=== PATIENT | male | born 1935 | race Caucasian/White ===

== ENCOUNTER 2016-09-06 20:01 | Emergency (ER) | payer OTHER, MEDICARE ==
[~2016-09-06] VITALS: Ht 193 cm; Wt 97.5 kg
--- NOTE | 2016-09-06 21:14 | RADIOLOGY REPORT ---
EXAMINATION: XR CHEST CLINICAL INFORMATION: Cough, shortness of breath. COMPARISON: Chest x-ray 08/13/2016. TECHNIQUE: PA and lateral views of the chest were obtained. FINDINGS: The lungs are well-expanded and clear without focal airspace consolidation. No pleural effusions or pneumothoraces are identified. Cardiomediastinal contours are within normal limits. Soft tissues are unremarkable. No acute osseous abnormality is identified. There is a healed fracture of the left lateral rib. IMPRESSION: No acute pulmonary abnormality.
--- NOTE | 2016-09-06 22:12 | ED GENERAL ADULT ---
History of Present Illness General Chief Complaint: Upper Respiratory Sx/Fever Stated Complaint: COUGH, CONGESTION, FEVER, CHILLS Source: patient Exam Limitations: no limitations Vital Signs & Intake/Output Vital Signs & Intake/Output Vital Signs Date Time Temp Pulse Resp B/P Pulse O2 O2 Flow FiO2 Ox Delivery Rate 09/07 0017 98.2 84 22 126/77 95 09/06 2312 94 09/06 2258 99.2 79 20 124/64 94 Room Air 09/06 2028 100.1 103 20 118/74 95 Room Air ED Intake and Output 09/07 0000 09/06 1200 Intake Total Output Total Balance Patient 215 lb Weight Allergies Coded Allergies: NO KNOWN ALLERGIES (09/24/11) Reconcile Medications Alendronate Sodium 70 MG TABLET 1 TAB PO QW BONES (Reported) in the morning, at least 30 minutes before the first food, beverage, or medication of the day Azithromycin (Zithromax) 250 MG TABLET 1 DP PO AD BRONCHITIS 2 the first day followed by 1 for days 2-5 Metoprolol Tartrate 25 MG TABLET 12.5 MG PO BID HTN (Reported) Prednisone 20 MG TABLET 1 TAB PO DAILY BRONCHITIS (Reported) Triage Note: PT TO ED C/O COUGH WITH YELLOW SPUTUM, CONGESTION, FEVER 102 AT HOME, CHILLS FOR 4 DAYS. JUST GOT BACK FROM [place] YESTERDAY AFTERNOON. Triage Nurses Notes Reviewed? yes Onset: Gradual Duration: day(s): (3) Timing: remote history Injury Environment: home Severity: moderate HPI: Patient is an 81-year-old male presenting to the emergency department with chief complaint of intermittently productive cough of yellow sputum has been going on for the past one week. He was recently in [place], symptoms started when he was there. Traveling home yesterday made symptoms worse. Developed fever up to 102. Had chills and malaise. Unsure of sick contacts but was in an airport. Denies any chest pain or palpitations. No abdominal pain. No nausea or vomiting. Denies shortness of breath. Denies any lower extremity swelling. No history of blood clot. Denies hemoptysis.HISTORY OF SIMILAR SYMPTOMS IN THE PAST WHEN HE HAS HAD A FLAREUP OF HIS BRONCHITIS. (ANA MARIA LINTON,KAVON) Past History Travel History Traveled to [place] past 21 day No Medical History Any Pertinent Medical History? see below for history Neurological: NONE EENT: NONE Cardiovascular: hypertension Respiratory: bronchitis, COPD, MISSING RLL OF LUNG Gastrointestinal: NONE Hepatic: NONE Renal: NONE Musculoskeletal: osteoarthritis Psychiatric: NONE Endocrine: NONE Blood Disorders: NONE Cancer(s): colon/rectal cancer GENERATION TECHNOLOGIST/Reproductive: NONE History of CDIFF: No Surgical History Surgical History: non-contributory Psychosocial History Who do you live with Spouse Services at Home None What is your primary language Uzbek Tobacco Use: Quit >30 days ago Family History Hx Contributory? No (KAVON HAGEN) Review of Systems Review of Systems Constitutional: Reports: fever. Comments Review of systems: See HPI, All other systems negative. Constitutional, no weight loss HEENT: No visual changes no sore throat Cardiovascular: No chest pain ,palpitation , orthopnea or ankle swelling Skin, no jaundice no rashes Respiratory: No dyspnea or hemoptysis GI: No nausea no vomiting : No dysuria No hematuria Muscle skeletal: no back pain, no neck pain, Neurologic: No numbness no confusion Psych: No stress anxiety or depression,. Heme/endocrine: No bruising no bleeding no polyuria or polydipsia Immunology: No splenectomy or history of AIDS (KAVON HAGEN) Physical Exam Physical Exam General Appearance: well developed/nourished, no apparent distress, alert, awake , comfortable Comments: Well-developed well-nourished person in no acute distress HEENT: Pupils equally round and reactive to light and accommodation. CLEAR CONJUNCTIVA. Nose is atraumatic. External auditory canal and Tympanic membranes clear. Pharynx normal. No swelling or edema. Neck: Supple, no lymphadenopathy, normal range of motion without pain or tenderness Back: Nontender Cardiovascular: Regular rate and rhythms no murmurs rubs or gallops, normal JVP Respiratory: Chest nontender. No respiratory distress.SCANT WHEEZING AT RIGHT LOWER LOBE, to auscultation bilaterally Extremity: No edema, no calf tenderness to palpation, normal and equal pulses. Neuro: Alert oriented x3 Skin: No appreciable rash on exposed skin, skin is warm and dry. Psych: Mood and affect is normal, memory and judgment is normal. Core Measures ACS in differential dx? No CVA/TIA Diagnosis: No Severe Sepsis Present: No Septic Shock Present: No (KAVON HAGEN) Progress Differential Diagnoses I considered the following diagnoses in my evaluation of the patient: Pneumonia , bronchitis, upper respiratory infection, sinusitis, pulmonary embolus, viral syndrome, influenza Plan of Care: Orders Procedure Date/time Status EKG 09/06 233 Active Add-on Test (ER Only) 09/06 2258 Active D-DIMER 09/06 2217 Complete RAPID VIRAL INFLUENZA A 09/06 2210 Complete COMPREHENSIVE METABOLIC PANEL 09/06 2033 Complete CBC WITHOUT DIFFERENTIAL 09/06 2033 Complete Laboratory Tests 09/06/162217: Anion Gap 11, Estimated GFR > 60, BUN/Creatinine Ratio 23.6, Glucose 128 H, Calcium 10.1, Total Bilirubin 1.1, AST 28, ALT 36, Alkaline Phosphatase 63, Total Protein 6.9, Albumin 4.2, Globulin 2.7, Albumin/Globulin Ratio 1.6, D- Dimer 341 H, CBC w Diff NO MAN DIFF REQ, RBC 4.49 L, MCV 96.0 H, MCH 32.2 H, RDW 13.9, MPV 8.5, Gran % 75.8 H, Lymphocytes % 11.1 L, Monocytes % 11.9 H, Eosinophils % 1.0, Basophils % 0.2, Absolute Granulocytes 7.3 H, Absolute Lymphocytes 1.1 L, Absolute Monocytes 1.1 H, Absolute Eosinophils 0.1, Absolute Basophils 0, PUBS MCHC 33.6 Microbiology 09/06 2232 NASOPHARYN: Influenza Virus A & B Rapid Smear - COMP Diagnostic Imaging: Viewed by Me: Radiology Read. Discussed w/RAD: Radiology Read. Radiology Impression: PATIENT: ERLINDA ZAMAN PRESENT AGE: 81 PATIENT ACCOUNT NO: [id number] : 36 LOCATION: [facility] ORDERING PHYSICIAN: LAURIE HERZOG MD SERVICE DATE: 09/06/16-2033 EXAM TYPE: RAD - XRY- CHEST XRAY, PA AND LATERAL EXAMINATION: XR CHEST CLINICAL INFORMATION: Cough, shortness of breath. COMPARISON: Chest x-ray 08/13/2016. TECHNIQUE: PA and lateral views of the chest were obtained. FINDINGS: The lungs are well-expanded and clear without focal airspace consolidation. No pleural effusions or pneumothoraces are identified. Cardiomediastinal contours are within normal limits. Soft tissues are unremarkable. No acute osseous abnormality is identified. There is a healed fracture of the left lateral rib. IMPRESSION: No acute pulmonary abnormality. DICTATED BY: DENICE FLORES MD DATE/TIME DICTATED: 09/06/162100 LINDERMAN MACHINE OPERATOR:JORDYN DATE/TIME TRANSCRIBED:09/06/162100 CONFIDENTIAL, DO NOT COPY WITHOUT APPROPRIATE AUTHORIZATION. <Electronically signed in Other Vendor System> SIGNED BY: DENICE FLORES MD 09/06/162113 Initial ED EKG: NSR (88 BPM) Prior EKG: unchanged Comments: Patient feeling improved after DuoNeb treatment. X-rays negative her pneumonia. No elevation in white blood count. D-dimer is negative for age adjusted d- dimer. (KAVON HAGEN) Departure Departure Time of Disposition: 5 Disposition: HOME OR SELF CARE Condition: Stable Clinical Impression Primary Impression: Bronchitis Referrals: NEERAJ DO MD (PCP/Family) Additional Instructions: Follow-up with your primary care physician call to make an appointment. Take Z- Semaj as prescribed. Continue prednisone taper as previously prescribed. Return for worsening symptoms or concerns. Increase fluids. Departure Forms: Customer Survey General Discharge Information Prescriptions: Current Visit Scripts Azithromycin (Zithromax) 1 DP PO AD #6 TAB 2 the first day followed by 1 for days 2-5 (KAVON HAGEN) PA/SEO SPECIALIST Co-Sign Statement Statement: ED Attending supervision documentation- x I saw and evaluated the patient. I have also reviewed all the pertinent lab results and diagnostic results. I agree with the findings and the plan of care as documented in the PA's/SEO SPECIALIST's documentation. [] I have reviewed the ED Record and agree with the PA's/SEO SPECIALIST's documentation. [] Additions or exceptions (if any) to the PAs/SEO SPECIALIST's note and plan are summarized below: [] (MINO RODRIGUEZ,LAURIE) Critical Care Note Critical Care Note Critical Care Time: non-applicable (KAVON HAGEN)
[2016-09-06 22:30] LABS: ABSOLUTE BASOPHIL COUNT 0 /CUMM (0.0-0.2); ABSOLUTE EOSINOPHIL COUNT 0.1 /CUMM (0.0-0.7); ABSOLUTE GRANULOCYTE CT 7.3 /CUMM (1.4-6.5); ABSOLUTE LYMPH COUNT 1.1 /CUMM (1.2-3.4); ABSOLUTE MONOCYTE COUNT 1.1 /CUMM (0.10-0.60); BASOPHIL % 0.2 % (0.0-2.0); GRANULOCYTE % 75.8 % (42.2-75.2); HEMATOCRIT 43.1 % (42-52); MEAN CORPUSCULAR HGB 32.2 PG (27.0-31.0); MEAN CORPUSCULAR HGB CONC 33.6 G/DL (33.0-37.0); MEAN PLATELET VOLUME 8.5 FL (7.4-10.4); PLATELET COUNT 214 /CUMM (130-400); RBC DISTRIBUTION WIDTH 13.9 % (11.5-14.5); RED BLOOD CELL CT 4.49 /CUMM (4.70-6.10); WHITE BLOOD CELL COUNT 9.6 /CUMM (4.8-10.8)
[2016-09-06] MEDS ORDERED: METOPROLOL TART25 M1 PO (23:54)
[2016-09-06] MEDS ORDERED: ALENDRONATE SOD70 M2 PO (23:54)
[2016-09-06] MEDS ORDERED: PREDNISONE20 M1 PO (23:54)
[2016-09-07] MEDS ORDERED: ZITHROMAX250 M2 PO (00:07)
[2016-09-07 00:17] VITALS: BP 126/77
== END 2016-09-07 00:18 ==
LOC: ERH 20:01
PROVIDERS: Emergency Medicine
DX: J40 Bronchitis, not specified as acute or chronic (principal); Z87.891 Personal history of nicotine dependence; R50.9 Fever, unspecified; I10 Essential (primary) hypertension
CPT/HCPCS: 1263; 87804; 87804-59; 93005; 93010